=== PATIENT | male | born 1955 | race Caucasian/White ===

== ENCOUNTER 2025-01-17 10:28 | Emergency (ER) | payer MEDICARE, OTHER, SELFPAY ==
[2025-01-17] VITALS (22 sets, daily range): BP systolic 87–145; BP diastolic 58–95; BMI 35.2
[2025-01-17 11:55] LABS: Hematocrit 45.8 % (39.0-52.0); Hemoglobin 15.7 g/dL (13.0-18.0); Mean Corp Hgb Conc. 34.3 g/dL (33.0-37.0); Mean Corpuscular Volume 88.6 fL (80.0-94.0); Nucleated Red Blood Cells % 0 % (-); Platelet Count 246 10^3/uL (130-400); Red Cell Dist. Width 14.5 % (11.5-14.5)
[2025-01-17] MEDS: CARDIZEM 25 MG IV (12:06)
[2025-01-17 12:09] LABS: ALT (SGPT) 32 U/L (0-50); AST (SGOT) 28 U/L (17-59); Albumin 4.4 g/dl (3.5-5.0); Alkaline Phosphatase 60 U/L (38-126); Blood Urea Nitrogen 23 mg/dl (9-20); Calcium 9.5 mg/dl (8.4-10.2); Carbon Dioxide 27 mmol/L (22-30); Chloride 105 mmol/L (98-107); Estimated Creatinine Clearance 101 ml/min; Glucose 93 mg/dl (70-99); Magnesium 2.4 mg/dl (1.6-2.3); Potassium 4.4 mmol/L (3.5-5.1); Sodium 136 mmol/L (135-145); Total Protein 7.2 g/dl (6.3-8.2); eGFR > 60.00
[2025-01-17] MEDS: NSS 500 IV (13:17)
--- NOTE | 2025-01-17 13:31 | ED.GENMED ---
History of Present Illness
<Anoop Orta PA-C - Last Filed: 01/17/25 14:12>
General
Chief Complaint: Cardiac Symptoms
Time Seen by Provider: 01/17/25 11:20
History of Present Illness
History of Present Illness:
69-year-old male presents the emergency department for evaluation of elevated heart rate that began yesterday. He has a distant history of A-fib, underwent ablation in 2020 and has not had any A-fib since. He still takes Eliquis but is not on
beta-blockers. Once the symptoms began he opted to take metoprolol yesterday as well as today however without benefit. No chest pain or shortness of breath. No fevers or chills.
Review of Systems
<Anoop Orta PA-C - Last Filed: 01/17/25 14:12>
Review of Systems
Allergies reviewed?: Yes
All Other Systems: ROS reviewed and negative except as documented in HPI and ROS
Phy Exam
<Anoop Orta PA-C - Last Filed: 01/17/25 14:12>
Physical Exam
Physical Exam:
GEN: Well appearing, NAD, WDWN
HEENT: Oral mucosa moist, no scleral icterus
Cardiac: Tachycardic, regular, no murmur
Lung: No respiratory distress, no tachypnea, lungs clear to auscultation bilaterally
MSK: No gross deformity or injuries
Skin: Good color, no pallor or jaundice, no rashes
Neuro: AO x3, moves all extremities freely
Psych: Calm, cooperativ
Course
<Anoop Orta PA-C - Last Filed: 01/17/25 14:12>
Orders/Labs/Results
Orders:
Orders
01/17/25 10:45
Electrocardiogram (*1) Urgent
Reason for Study: Tachycardia
EKG- Treatment ONCE
01/17/25 11:43
Complete Blood Count/With Diff Urgent
Comprehensive Metabolic Panel Urgent
Magnesium Urgent
01/17/25 11:44
Diltiazem HCl [Cardizem] 25 mg IV NOW STA
01/17/25 12:12
Electrocardiogram (*1) Urgent
Reason for Study: Atrial Flutter
EKG- Treatment ONCE
01/17/25 12:49
Propofol [Diprivan] 20 ml .ROUTE .STK-MED
01/17/25 13:00
EKG [Electrocardiogram (*1)] Urgent
Reason for Study: Abnormal EKG
01/17/25 13:01
EKG- Treatment ONCE
01/17/25 13:14
0.9% Sodium Chloride 500 ml [Nss] 500 ml IV BOLUS
Abnormal Lab Results
01/17/25
11:43
Absolute Monos (auto) 1.5 H 10^3/uL
(0.1-0.6)
Monocytes % 16.1 H %
(1.7-9.3)
BUN 23 H mg/dl
(9-20)
Magnesium 2.4 H mg/dl
(1.6-2.3)
01/17/25 11:43
01/17/25 11:43
Vital Signs
Initial and Last Documented VS:
Initial Vital Signs
Temp Pulse Resp BP Pulse Ox
97.7 F 148 17 145/95 99
01/17/25 10:40 01/17/25 10:40 01/17/25 10:40 01/17/25 10:40 01/17/25 10:40
Last Documented Vital Signs
Temp Pulse Resp BP Pulse Ox
98.3 F 65 10 91/66 98
01/17/25 13:30 01/17/25 14:00 01/17/25 14:00 01/17/25 14:00 01/17/25 14:00
<Kalia Simms, DO - Last Filed: 01/17/25 13:37>
Orders/Labs/Results
Orders:
Orders
01/17/25 10:45
Electrocardiogram (*1) Urgent
Reason for Study: Tachycardia
EKG- Treatment ONCE
01/17/25 11:43
Complete Blood Count/With Diff Urgent
Comprehensive Metabolic Panel Urgent
Magnesium Urgent
01/17/25 11:44
Diltiazem HCl [Cardizem] 25 mg IV NOW STA
01/17/25 12:12
Electrocardiogram (*1) Urgent
Reason for Study: Atrial Flutter
EKG- Treatment ONCE
01/17/25 12:49
Propofol [Diprivan] 20 ml .ROUTE .STK-MED
01/17/25 13:00
EKG [Electrocardiogram (*1)] Urgent
Reason for Study: Abnormal EKG
01/17/25 13:01
EKG- Treatment ONCE
01/17/25 13:14
0.9% Sodium Chloride 500 ml [Nss] 500 ml IV BOLUS
Abnormal Lab Results
01/17/25
11:43
Absolute Monos (auto) 1.5 H 10^3/uL
(0.1-0.6)
Monocytes % 16.1 H %
(1.7-9.3)
BUN 23 H mg/dl
(9-20)
Magnesium 2.4 H mg/dl
(1.6-2.3)
01/17/25 11:43
01/17/25 11:43
Vital Signs
Initial and Last Documented VS:
Initial Vital Signs
Temp Pulse Resp BP Pulse Ox
97.7 F 148 17 145/95 99
01/17/25 10:40 01/17/25 10:40 01/17/25 10:40 01/17/25 10:40 01/17/25 10:40
Last Documented Vital Signs
Temp Pulse Resp BP Pulse Ox
98.3 F 65 10 91/66 98
01/17/25 13:30 01/17/25 14:00 01/17/25 14:00 01/17/25 14:00 01/17/25 14:00
Procedures
<Anoop Orta PA-C - Last Filed: 01/17/25 14:12>
Cardioversion
Indication:: Afib
Performed by:: Anoop Orta PA-C
Synchronized?: Yes
Energy Used: 150 joules
Number of attempts: 1
Successful?: Yes
ASA Risk Score: Class II
Any reaction or bad outcome to prior sedation/anesthesia?: No history of a reaction
Sedation level to be attained: moderate
Chart and allergies reviewed: Yes
Patient reassessed prior to sedation: Yes
Time out completed at (validating right patient & procedure): 12:55
History of difficult intubation: No
Airway free of obstruction: Yes
Patient has a gag reflex: Yes
Patient is able to open mouth: Yes
Patient has no dentures: Yes
Patient has no loose teeth: No
Medication administered by Provider during Moderate Sedation: IV Propofol (mg)
Total dose administered: 50
Time drug administered: 12:57
Start Time: 12:57
Stop Time: 13:07
<Kalia Simms DO - Last Filed: 01/17/25 13:37>
Moderate Sedation
Moderate Sedation Start Time(when first medication is given): 12:57
<Anoop Orta PA-C - Last Filed: 01/17/25 14:12>
MDM/Problems Addressed
MDM/Problems Addressed:
Patient was initially treated with IV diltiazem with good rate control however remained in atrial flutter. We discussed options to include cardioversion versus continuing rate control medicine with outpatient cardiology follow-up. At this time he
opts for electrical cardioversion. This was performed successfully without complications. Will continue the patient on his previous beta-blockers and recommend outpatient cardiology follow-up
<Kalia Simms, - Last Filed: 01/17/25 13:37>
*Pulse Oximetry
SaO2: 100
Oxygen Mode of Delivery: Room air
Patient hypoxic: no
*Critical Care Note
Total Time (30-74mins, 75-104mins- exclusive of procedures): 30
ED Attending Note
<Kalia Simms, - Last Filed: 01/17/25 13:37>
ED Attending Note
Patient seen and examined by attending physician: Yes
I performed the substantive portion of visit, reviewed & personally made and approve the management plan that is documented in note by myself or RAFIA.: Yes
ED Attending Note:
Seen with PA examined independently PAF status post ablation has been compliant with his Eliquis, A-fib for less than 36 hours, slower with Cardizem, successfully cardioverted 1 synchronous shock
-
Portions of this chart may have been created with voice recognition software.� Occasional wrong word or��sound alike� substitutions may have occurred due to the inherent limitations of voice recognition software.
Discharge Plan
Departure
Patient Disposition: Home (Routine Discharge)
Date of Disposition: 01/17/25
Time of Disposition: 13:56
Patient with high blood pressure during this ER visit?: No
Discharge Problem:
Atrial flutter with rapid ventricular response
Instructions: Atrial fibrillation and atrial flutter - ED discharge instructions, MODERATE SEDATION ADULT
Prescriptions:
New
metoprolol succinate 25 mg tablet extended release 24 hr
25 mg PO DAILY Qty: 30 0RF
Referrals:
Ifeanyi Lainez MD [Active, Cardiology]
Interventions
Interventions:
*Risk Screen - Suicide Last Done: 01/17/25 10:45
*General Assessment Last Done: 01/17/25 10:45
*Neglect/Abuse Screening Last Done: 01/17/25 10:45
*ED- Fall Risk Assessment Last Done: 01/17/25 11:20
*ED COVID-19 Vaccine History Last Done: 01/17/25 10:45
*Nursing Disposition Last Done: 01/17/25 14:07
ED- Pulmonary Assessment Last Done: 01/17/25 11:22
ED- Cardiac Assessment Last Done: 01/17/25 11:22
Discharge Date and Time
Print Language: SOMALI
== END 2025-01-17 14:12 | disposition home or self-care (01) ==
LOC: EMR 10:28
PROVIDERS: Physician Assistant; EMERGENCY PHYSICIAN Emergency Medicine
DX: I48.92 Unspecified atrial flutter (principal); I48.91 Unspecified atrial fibrillation; Z79.01 Long term (current) use of anticoagulants; Z88.6 Allergy status to analgesic agent; Z88.8 Allergy status to other drugs, medicaments and biological substances
CPT/HCPCS: 99291; 92960; 96374; 99152; 80053; 83735; 85025; 93005